=== PATIENT | male | born 1940 | race Caucasian/White ===

== ENCOUNTER 2017-07-24 08:29 | Day surgery (SDC) | payer MEDICARE ==
[~2017-07-24] VITALS: Ht 182.9 cm; Wt 88.1 kg
[~2017-07-24 08:29] MED LIST: ASPI-555 PO; DUTA.5 PO; LOSA25TA21 PO; SIMV20TA6 PO; SODIUM CHLORIDE 0.9% 1000ML 1,000 ML IV ONE
[2017-07-24 08:50] VITALS: BP 146/88
[2017-07-24] MEDS ORDERED: MEPERIDINE-PF 50 MG/ML SYG ONE (10:41)
[2017-07-24] MEDS ORDERED: MIDAZOLAM HCL 1 MG/ML 2ML VIAL ONE (10:41)
[2017-07-24 11:00] VITALS: BP 121/52
== END 2017-07-24 11:53 ==
LOC: ENDO 08:29 → DAH 08:29 → ENDO 11:53
PROVIDERS: ATTEND Internal Medicine Gastroenterology
DX: Z12.11 Encounter for screening for malignant neoplasm of colon (principal); E03.9 Hypothyroidism, unspecified; N40.0 Benign prostatic hyperplasia without lower urinary tract symptoms; Z79.82 Long term (current) use of aspirin; Z79.899 Other long term (current) drug therapy; Z98.890 Other specified postprocedural states
CPT/HCPCS: A4606; G0121; J2175; J2250; J7030